=== PATIENT | male | born 1950 | race Caucasian/White ===

== ENCOUNTER 2016-05-20 11:40 | Day surgery (SDC) | payer OTHER ==
[2016-05-20] MEDS ORDERED: LIDOCAINE 1% 2 ML INJ ONE (12:25)
[2016-05-20] MEDS ORDERED: LR 1,000 ML IV ONE (12:37)
[2016-05-20] MEDS ORDERED: LIDOCAINE 1% 5 ML SDV ID PRN (12:37)
[2016-05-20] MEDS ORDERED: BUPIVACAINE 0.5% 30 ML SDV ONE (12:44)
[2016-05-20] MEDS ORDERED: fentaNYL 100 MCG/2 ML INJ ONE (14:03)
[2016-05-20] MEDS ORDERED: PROPOFOL 200 MG/20 ML VIAL ONE (14:03)
[2016-05-20] MEDS ORDERED: PROPOFOL/EMULSION 500 MG/50 ML BOTTLE IV ONE (14:33)
[2016-05-20] MEDS ORDERED: ONDANSETRON 4 MG/2 ML VIAL ONE (15:02)
[2016-05-20] MEDS ORDERED: KETOROLAC 30 MG/1 ML SDV ONE (15:02)
[2016-05-20] MEDS ORDERED: OXYCODONE/APAP 5/325 TAB ONE (16:12)
--- NOTE | 2016-05-22 08:48 | GOP ---
[f rep st] OPERATIVE REPORT DATE OF OPERATION: 05/20/2016 SURGEON: Jed Howe MD ANESTHESIA: General. PREOPERATIVE DIAGNOSIS: 1. Left hallux rigidus. 2. Left gastrocnemius contracture. POSTOPERATIVE DIAGNOSIS: 1. Left hallux rigidus. 2. Left gastrocnemius contracture. PROCEDURE PERFORMED: 1. Left 1st metatarsophalangeal implant hemiarthroplasty. 2. Left 1st metatarsophalangeal cheilectomy and debridement. 3. Left gastrocnemius recession. 4. Intraoperative use of fluoroscopy. FINDINGS: ESTIMATED BLOOD LOSS: Minimal. INDICATIONS: The patient is a 66-year-old with a history of progressive left medial forefoot pain. Clinically and radiographically, he was noted to have moderate to advanced hallux rigidus. Based o n his persistence of symptoms, refractory to nonoperative treatment, he was interested in pursuing o perative treatment from an operative standpoint. After a thorough discussion of the risks and benef its of various operative options, he elected to pursue an implant hemiarthroplasty (Cartiva). The p atient acknowledged he understood the potential risks of the operation, including, but not limited t o, bleeding, infection, neurovascular damage, limb loss or limited limb function,, implant failure n ecessitating revision, arthrodesis and anesthetic risks. He acknowledged he understood the potentia l risks, planned procedure, and postoperative plan well and had all questions answered. He gave his consent for the operative procedure. DESCRIPTION OF PROCEDURE: Patient was brought in the operative room after IV antibiotics were admin istered. He was placed in a supine position where general anesthetic was administered. A tournique t was placed on the left thigh, and his left lower extremity was prepped and draped in standard ster ile fashion. After marking the incisions, an Josh wrap exsanguination tourniquet was inflated to 250 . Attention was initially directed towards the gastroc recession. An incision was made along the m idaspect of the gastrocnemius along the posteromedial aspect of the lower leg. Skin and subcutaneou s tissue were sharply incised. The superficial posterior compartment of fascia was incised in line with the skin incision. The interval between the gastroc and soleus was bluntly identified. Utiliz ing a speculum for retraction, the anterior fascia of the gastroc was transversely incised. Favorab le dorsiflexion was achieved following this. Superficial posterior compartment fascia and subcutane ous tissue were closed with 3-0 Vicryl suture in an interrupted fashion, and the skin was closed wit h 4-0 nylon interrupted sutures. Attention was then directed toward the MTP joint. A longitudinal incision was made along the dorsal aspect of the first MTP joint. Skin and subcutaneous tissue were sharply incised. Sharp dissectio n was carried adjacent to the EHL tendon down to the capsule. The capsule was reflected medially an d laterally. Significant articular compromise was noted on the metatarsal head. Utilizing a saw an d rongeur, osteophytes on the dorsal, medial and lateral aspects of the metatarsal head and proximal phalanx were removed. A guide pin from the Cartiva implant was inserted into the central aspect of the metatarsal head. A guide pin position was checked fluoroscopically and found to be optimal. A n 8 mm reamer was then utilized to create a trough for the Cartiva implant. The implant was impacte d into place with approximately 2 mm of prominence. The joint was taken through a range of motion a nd found to have no evidence of impingement. The capsule was reapproximated with 2-0 Vicryl suture in interrupted fashion, subcutaneous tissue closed with 3-0 Vicryl suture in interrupted fashion. T he skin closed with 4-0 nylon interrupted sutures. 0.5% Marcaine without epinephrine was injected i nto the wound sites. The wounds were dressed with sterile Adaptic, 4 x 4, and Kerlix and an Josh wra p. The patient was placed in a fracture boot and taken to the recovery room, extubated, in stable c ondition postoperatively. All sponge, needle, and instrument counts were reported as being correct. DRAINS: None. COMPLICATIONS: None. PLAN: The patient will be discharged home, weightbearing as tolerated in a fracture boot. /[id number]/MODL
== END 2016-05-20 18:30 | disposition home or self-care (01) ==
LOC: FSGY 11:40
PROVIDERS: ATTEND Orthopaedic Surgery Foot and Ankle Surgery
PROC: 0KNT0ZZ Release Left Lower Leg Muscle, Open Approach (ICD-10-PCS; principal; 2016-05-20 13:45)
PROC: 0SBN0ZZ Excision of Left Metatarsal-Phalangeal Joint, Open Approach (ICD-10-PCS; principal; 2016-05-20 13:45)
PROC: 0SRN0JZ Replacement of Left Metatarsal-Phalangeal Joint with Synthetic Substitute, Open Approach (ICD-10-PCS; principal; 2016-05-20 13:45)
DX: M20.22 Hallux rigidus, left foot (principal); M62.462 Contracture of muscle, left lower leg
CPT/HCPCS: J0690; J1885; J2405; J2704; J3010